=== PATIENT | female | born 1985 ===

== ENCOUNTER 2016-10-06 19:18 | Observation (INO) ==
--- NOTE | 2016-10-06 18:24 | OB/GYN History & Physical ---
Date of Encounter: 10/06/16 Time of Encounter: 18:22 Assessment and Plan (1) Vaginal bleeding in Current visit: Yes Status: Acute Evaluation in triage for vaginal bleeding CBC, PT INR,fibrinogen and type and screen Ultrasound for HIEN placental location and assessment and cervical evaluation Standard triage monitoring Dr. Shea updated in into assess patient Qualifiers: Trimester: third trimester Qualified Code(s): O46.93 - Antepartum hemorrhage, unspecified, third trimester (2) 35 weeks gestation of Current visit: Yes Status: Acute History of Present Illness HPI: Ms. Rodriguez is a 31 year old female 34+5 weeks gestation presents to triage with vaginal bleeding. Patient states vaginal bleeding has been recurring since last . , patient had a bleed while laying down in bed with her son was heavy enough to saturate through her clothes and onto the sheets, while awaiting to hear from her OB the patient had another bleed and presented to the ED for evaluation. Patient states had a vaginal exam in the ED in [place] at that time was told was closed thick and high and was sent home. Bleeding continued for the next day with spotting brown discharge followed on Wednesday no bleeding on Wednesday however on Wednesday bleeding resumed to wear patient is having bright red bleeding whenever she wipes up to quarter size diameter. Patient reports good movement states occasional Dago Ryan contractions no other leaking of fluid. 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 Denies abdominal pain or tenderness. Patient reports uncomplicated besides hyperemesis. In last patient was induced at 42 weeks vaginal delivery, only combination with delivery as patient states she bled a little heavier than was "usual" after delivery. She states she is received care from physician in [place] where she resides Past Med Surg Social Fam HX - Past Medical History Source: patient Medical history: no medical history Psychiatric history: anxiety, ADHD, depression - Past Surgical History Surgical History: other - Social History Smoking Status: Never smoker Smokeless Tobacco Status: No Alcohol use: none Drug use: none - Family History Mother Living Status: Still Living Hx Family Cardiac Disorders: No Hx Family Respiratory Disorders: No Hx Family Cancer: No Hx Family GI Disorders: No Hx Family Genitourinary Disorders: No Hx Family Endocrine Disorder: No Hx Family Musculoskeletal Disorders: No Hx Family Neuromuscular Disorders: No Hx Family Neurologic Disorders: No Hx Family HEENT Disorders: No Hx Family Autoimmune Disorders: No Hx Family Reproductive Disorders: No Hx Family Psychosocial Disorders: No Hx Family Medical Disorders: No Obstetrical History - Pregnancies : 3 Para: 1 Term: 1 : 0 Ab's: 1 Livin Medications and Allergies Vit Calc,Iron,Folic [ Vitamins] 1 each PO DAILY 10/06/16 [ History] Allergies No Known Allergies Allergy (Verified 10/06/16 18:12) Review of System OB All systems PM: reviewed and no additional remarkable complaints except as stated Exam - Constitutional Constitutional: well developed, well nourished, no acute distress, average body habitus - Neck Neck exam: full ROM - Lungs Respiratory exam: CTAB - Cardiovascular Cardiovascular exam: RRR, +S1, +S2 - Breasts Breast: bilateral: normal - Abdomen Abdomen: Present: bowel sounds normal, gravid, non tender - Extremities Extremities exam: normal capillary refill, normal inspection Deep Tendon Reflex Grade: 2+ Normal Results All other labs normal. - VTE Reasons for not Prescribing Prophylaxis: Medical contraindication
[2016-10-06 18:28] LABS: Basophils # 0.1 K/mcL (0.0-0.2); Basophils % 0.7 %; Eosinophils # 0.1 K/mcL (0.0-0.6); Eosinophils % 0.9 %; Hematocrit 33.6 % (35.3-44.9); Hemoglobin 11.6 g/dL (11.5-15.4); Immature Platelets 9.8 % (1.1-6.1); Lymphocytes # 1.8 K/mcL (0.6-4.6); Lymphocytes % 13.2 %; Mean Corpuscular HGB Conc 34.5 g/dL (31.6-35.5); Mean Corpuscular Hemoglobin 32.2 pg (28.0-33.3); Mean Corpuscular Volume 93.3 fL (83.0-100.0); Mean Platelet Volume 11.2 fL (9.4-12.4); Monocytes # 0.7 K/mcL (0.0-1.3); Monocytes % 5.4 %; Platelet Count 111 K/mcL (140-400); Red Cell Distribution Width 13.2 % (11.5-14.5); Segmented Neutrophils % 72.8 %
[2016-10-06 18:41] LABS: Bilirubin,Urine Negative (Negative); Blood,Urine Large (Negative); Clarity,Urine Cloudy (Clear); Color,Urine Yellow (Yellow); Glucose,Urine (UA) Normal (Normal); Ketones,Urine Negative (Negative); Leukocyte Esterase,Urine Negative (Negative); Nitrite,Urine Negative (Negative); Protein,Urine Negative (Neg-Trace); Specific Gravity,Urine 1.013 (1.010-1.025); Urobilinogen,Urine Normal (Normal)
[2016-10-06 18:43] LABS: Hyaline Casts,Urine None Seen per lpf (None-Few); Squamous Epithelial Cell,Urine Many per lpf (None-Few); WBC,Urine 0-3 per hpf (0-3)
[2016-10-06 18:43] LABS: Prothrombin Time 10.4 Seconds (9.4-12.1)
[2016-10-06 19:03] LABS: Bacteria,Urine Few per hpf (None-Few); RBC,Urine TNTC per hpf (0-3)
--- NOTE | 2016-10-06 21:12 | OB Labor Progress Note ---
Date of Encounter: 10/06/16 Time of Encounter: 21:08 Labor Progress Note - Subjective Subjective: Pt without c/o at this time except for scant bleeding. No uc's or LOF - Vital Signs Vital Signs: AF,VSS - Cervix Cervix: Visually closed by Spec exam, scant blood noted. - Heart Tones Heart Tones: RNST - Webster Webster: No uc's - Interventions Interventions: U/s without convincing evidence of abruption., AGA with normal HIEN. - Plan Plan: D/w pt options including continued observation vs discharge home. Pt is in town within 10 min of hospital. Pt aware of risk of abruption and given s/sx's of abruption. She is advised if she has worsening abdominal pain, bleeding or tetanic contraction to present immediately to L&D. Pt aware of risks and desires d/c home.
== END 2016-10-06 21:12 | disposition home or self-care (01) ==
LOC: 1NENULAB
PROVIDERS: ADMIT Advanced Practice Midwife; ATTEND Obstetrics & Gynecology